=== PATIENT | female | born 1990 | race Caucasian/White ===

== ENCOUNTER 2018-06-20 04:17 | Emergency (ER) | payer OTHER ==
[~2018-06-20] VITALS: Ht 160 cm; Wt 98.0 kg
[~2018-06-20 04:17] MED LIST: ALBUTEROL0.09 MG/A1 INH; BACTRIM DS 8001 TAB PO; CHERATUSSIN AC118 M1 PO; CLEOCIN HCL300 MG PO; DILAUDID2 MG PO; ENDOCET 325 MG-1 TA1 PO; GOOD SENSE IBU200 MG PO; IPRAT-ALBUT 0.5-3 ML NEB; MEDROL4 M2 PO; MOTRIN800 MG PO; NORFLEX100 MG PO; PEPCID40 MG PO; PERIDEX 480 ML480 ML PO; PREDNISONE10 MG PO; PROAIR HFA0.09 MG/Ac; TYLENOL #31 TAB PO; VICODIN5-300 PO; VISTARIL50 MG PO; VOLTAREN75 MG PO; ZOFRAN ODT4 M1 SL
--- NOTE | 2018-06-20 05:46 | ED NECK/BACK PAIN COMPLAINT ---
History of Present Illness General Chief Complaint: General Adult Stated Complaint: "THYROID NODULE PAINFUL AND CAUSING SOB" Source: patient, old records Exam Limitations: no limitations Vital Signs & Intake/Output Vital Signs & Intake/Output Vital Signs Date Time Temp Pulse Resp B/P B/P Pulse O2 O2 Flow FiO2 Mean Ox Delivery Rate 06/20 1038 97.9 75 20 122/71 96 Room Air 06/20 0835 98.3 81 20 124/78 98 Room Air 06/20 0620 97.7 73 18 115/60 98 Room Air 06/20 0429 98 Room Air 06/20 0428 99.0 99 16 131/81 98 Room Air Room Air Allergies Coded Allergies: MDX - Dextromethorphan (Dextromethorphan) (Severe, HIVES FROM NYQUIL 05/07/15) MDX - Doxylamine (Doxylamine) (Severe, HIVES FROM NYQUIL 05/07/15) MDX - Ciprofloxacin (CIPROFLOXACIN) (Intermediate, RASH, MOOD SWINGS 05/07/15) MDX - Diphenhydramine (From BENADRYL) (HIVES 05/07/15) Uncoded Allergies: Zipari ZESTY SAUCE (HIVES 11/07/14) Reconcile Medications Albuterol Sulfate (Albuterol Sulfate Hfa) 90 MCG HFA.AER.AD 2 PUFF INH Q4-6 PRN PRN SHORTNESS OF BREATH (Reported) 90 MCG PER PUFF Codeine Phosphate/Guaifenesi (Cheratussin AC Syrup) 10 MG-100 MG/5 ML LIQUID 10 ML PO Q6H PRN COUGH Diclofenac Sodium (Voltaren) 75 MG ECT 1 TAB PO BID PRN BACK PAIN Ipratropium/Albuterol Sulfate (Iprat-Albut 0.5-3(2.5) MG/3 Ml) 0.5 MG-3 MG (2.5 MG BASE)/3 ML AMPUL.NEB 3 ML NEB Q4-6H PRN COUGH/SOB Methylprednisolone. (Medrol) 4 MG TAB.DS.PK 1 DP PO AD BRONCHITIS 6 on day 1 then reduce by one tablet daily until gone Ondansetron (Zofran Odt) 4 MG TAB.RAPDIS 1 TAB SL TID PRN NAUSEA Orphenadrine Citrate (Norflex) [address] 1 TAB PO BID PRN BACK SPASMS Triage Note: 27YO FEMALE TO TRIAGE W/CO "THYROID NODULE IS GETTING BIGGER AND MORE PAINFUL" ALSO STATES DIFFICULTY SWALLOWING AND BREATHING" STATES SHE IS SCHEDULED FOR SURG ON 07/12 Triage Nurses Notes Reviewed? yes : No Patient currently breastfeeds: No HPI: Patient presents for evaluation of a worsening right-sided thyroid nodule. Patient states she is seeing an fitness consultant for this but they "do nothing". Patient states that she has had episodes similar to this in the past but it is more intense than usual currently. Patient is experiencing fullness and a choking feeling in the neck along with pain to the right side of the face and down the right side of the neck into the chest. Again she has had similar episodes in the past but typically so intense. Patient states they will resolve spontaneously after about 3-4 days (the current episode has been present for about 3 days). She tried ibuprofen without much improvement. She has seen a surgeon who will be removing the thyroid nodule over the next few weeks. (Kathy NUNEZ,Kranthi Brandt) Past History Travel History Traveled to [place] past 21 day No Medical History Any Pertinent Medical History? see below for history Neurological: NONE EENT: NONE Cardiovascular: NONE Respiratory: ASTHMA1 Gastrointestinal: NONE Hepatic: NONE Renal: UTI'S1 KIDNEY INFECTIONS Musculoskeletal: chronic back pain Psychiatric: NONE Endocrine: THYROID NODULE Surgical History Surgical History: ORAL SURGERY Psychosocial History What is your primary language Bulgarian Tobacco Use: Current Daily Use Daily Tobacco Use Amount/Type: => 5 Cigarettes daily Family History Hx Contributory? No (Kathy NUNEZ,Kranthi Brandt) Review of Systems Review of Systems Constitutional: Reports: no symptoms. Eyes: Reports: no symptoms. Ears, Nose, Throat, Mouth: Reports: see HPI. Respiratory: Reports: no symptoms. Cardiovascular: Reports: no symptoms. Gastrointestinal/Abdominal: Reports: no symptoms. Musculoskeletal: Reports: no symptoms. Skin: Reports: no symptoms. Neurological/Psychological: Reports: no symptoms. All Other Systems: Reviewed and Negative (Kathy NUNEZ,Kranthi Brandt) Physical Exam Physical Exam Neck: SEE BELOW Comments: Gen.: Well-nourished, well-developed, no acute respiratory distress. Head: Normocephalic, atraumatic. Eyes: Normal inspection bilaterally Ears: Normal inspection bilaterally Nose: Normal inspection Throat/mouth : Moist mucosa Neck: Supple, full range of motion, palpable right thyroid nodule, no stridor Heart: Regular rate and rhythm Lungs: Quiet respirations with good bilateral air entry Back: Normal range of motion Extremities: Normal range of motion grossly, no cyanosis clubbing or edema of the upper extremities Neurologic: Cranial nerves grossly intact, speech is clear Skin: warm and dry Psychiatric: Calm, cooperative, no apparent delusions or hallucinations Core Measures CVA/TIA Diagnosis: No (Kathy NUNEZ,Kranthi Brandt) Progress Differential Diagnosis: THYROID NODULE, MUSCULOSKELETAL PAIN, AIRWAY IMPINGEMENT Plan of Care: Orders Procedure Date/time Status Saline Lock 06/20 817 Active CBC WITHOUT DIFFERENTIAL 06/20 817 Complete BASIC METABOLIC PANEL 06/20 817 Complete URINE 06/20 519 Complete Laboratory Tests 06/20/18 0900: Anion Gap 12, Estimated GFR > 60, BUN/Creatinine Ratio 6.7 L, Glucose 89, Calcium 9.6, CBC w Diff NO MAN DIFF REQ, RBC 5.18, MCV 83.1, MCH 27.3, MCHC 32.9 L, RDW 15.9 H, MPV 8.6, Gran % 60.2, Lymphocytes % 31.4, Monocytes % 6.8, Eosinophils % 1.2, Basophils % 0.4, Absolute Granulocytes 3.9, Absolute Lymphocytes 2.0, Absolute Monocytes 0.4, Absolute Eosinophils 0.1, Absolute Basophils 0 06/20/18526: Urine Test NEGATIVE Diagnostic Imaging: Discussed w/RAD: Radiology Read. Radiology Impression: PATIENT: JIL MORIN PRESENT AGE: 27 PATIENT ACCOUNT NO: [id number] : 90 LOCATION: [facility] ORDERING PHYSICIAN: Kranthi Chavez MD SERVICE DATE: 06/20/18 EXAM TYPE: RAD - XRY-SOFT TISSUE NECK EXAMINATION: XR SOFT TISSUE NECK CLINICAL INDICATION: Sensation of fullness of throat. COMPARISON: Chest radiograph from December 10, 2013. TECHNIQUE: 2 views of the soft tissue neck were obtained. FINDINGS: There is mild displacement of the trachea to the left at the level of the thoracic inlet. There is only minimal luminal narrowing at this location. There is no prevertebral soft tissue swelling. The cervical vertebra are in normal alignment. IMPRESSION: Mild leftward displacement to the trachea at the level of the thoracic inlet. No radiopaque foreign bodies. No prevertebral soft tissue swelling. DICTATED BY: Jakob Emanuel MD DATE/TIME DICTATED:06/20/18558 NEON GLASS BENDER:JESÚS DATE/TIME TRANSCRIBED:06/20/18558 CONFIDENTIAL, DO NOT COPY WITHOUT APPROPRIATE AUTHORIZATION. <Electronically signed in Other Vendor System> SIGNED BY: Jakob Emanuel MD 06/20/18 0604 Comments: 06/20/2018 7:15:31 AM patient signed out to Dr. Bro at shift change management. (Kathy NUNEZ,Kranthi Brandt) Radiology Impression: IMPRESSION: Enlarged right lobe of thyroid secondary to a solitary complex cyst in the right lobe of the thyroid, similar to prior, with an irregular margin and lobulation. No discrete microcalcifications or abnormal color Doppler flow are seen on this side. Symptomatic relief and sampling could be obtained with a fine-needle aspiration biopsy as appropriate. The patient indicated that they are scheduled for a lobectomy. Normal isthmus and left lobe of thyroid., IMPRESSION: Large complex cyst right thyroid lobe with moderate mass effect on on right thyroid lobe and shift of trachea to the left without compromising the airway. Borderline lymph node right posterior neck. Most of the anterior neck lymph nodes are normal. Rest of the CT neck appears unremarkable. Recommend ultrasound-guided complete aspiration and biopsy of right thyroid complex cyst. DICTATED BY: Nydia NUNEZ,Noah DATE/TIME DICTATED:06/20/181103 NEON GLASS BENDER:JESÚS DATE/TIME TRANSCRIBED:06/20/181103 Comments: 0819 given the patient's x-ray finding and complaint of neck swelling for the thyroid nodule we will get a CT scan for evaluation of the airway. The pain is radiating up into the jaw and neck on the right side where the patient has a nodule. At this time protecting the airway, speaking comfortably. Not stridorous. In no distress. [address] scan and ultrasound report both show a complex cyst on the right thyroid shifting the trachea but not causing airway compromise. The patient remains without stridor and speaking in long complete sentences without discomfort. Her main complaint is continued discomfort in the neck and she has a lobectomy already scheduled next month. But given the CT scan report of the radiologist I discussed the possibility of aspiration to relieve the patient's current discomfort so she could get symptomatic relief while waiting for the lobectomy. The patient states that "nobody is going near my neck with a needle" and she will contact her doctors in [place] for her continued care. Since the patient has no airway compromise or impending airway compromise and this is a chronic condition, we will let her follow through with this plan. I have given the patient option to have faster relief but she is refusing it at this time. She understands that she needs to get in touch with her surgeon tomorrow and they can get the report from our radiology. (Ny Bro MD) Departure Departure Condition: Stable Clinical Impression Primary Impression: Thyroid nodule Referrals: Jorge Donaldson MD (PCP/Family) Departure Forms: Customer Survey General Discharge Information (Kranthi Chavez MD) Departure Time of Disposition: 1135 Disposition: HOME OR SELF CARE Additional Instructions: Your continued discomfort can be helped by drainage of cyst in your neck. If you change your mind please contact your primary doctor to arrange for the procedure. Return immediately if has any trouble breathing or swallowing. Unfortunately the discomfort will not get better until the cyst is either removed or drained. (Ny Bro MD) At this time protecting the airway, speaking comfortably. Not stridorous. In no distress. [address] scan and ultrasound report both show a complex cyst on the right thyroid shifting the trachea but not causing airway compromise. The patient remains without stridor and speaking in long complete sentences without discomfort. Her main complaint is continued discomfort in the neck and she has a lobectomy already scheduled next month. But given the CT scan report of the radiologist I discussed the possibility of aspiration to relieve the patient's current discomfort so she could get symptomatic relief while waiting for the lobectomy. The patient states that "nobody is going near my neck with a needle" and she will contact her doctors in [place] for her continued care. Since the patient has no airway compromise or impending airway compromise and this is a chronic condition, we will let her follow through with this plan. I have given the patient option to have faster relief but she is refusing it at this time. She understands that she needs to get in touch with her surgeon tomorrow and they can get the report from our radiology. (Ny Bro MD) Departure Departure Condition: Stable Clinical Impression Primary Impression: Thyroid nodule Referrals: Jorge Donaldson MD (PCP/Family) Departure Forms: Customer Survey General Discharge Information (Kranthi Chavez MD) Departure Time of Disposition: 1135 Disposition: HOME OR SELF CARE Additional Instructions: Your continued discomfort can be helped by drainage of cyst in your neck. If you change your mind please contact your primary doctor to arrange for the procedure. Return immediately if has any trouble breathing or swallowing. Unfortunately the discomfort will not get better until the cyst is either removed or drained. (Dieudonne NUNEZ,[facility])
--- NOTE | 2018-06-20 06:04 | RADIOLOGY REPORT ---
EXAMINATION: XR SOFT TISSUE NECK CLINICAL INDICATION: Sensation of fullness of throat. COMPARISON: Chest radiograph from December 10, 2013. TECHNIQUE: 2 views of the soft tissue neck were obtained. FINDINGS: There is mild displacement of the trachea to the left at the level of the thoracic inlet. There is only minimal luminal narrowing at this location. There is no prevertebral soft tissue swelling. The cervical vertebra are in normal alignment. IMPRESSION: Mild leftward displacement to the trachea at the level of the thoracic inlet. No radiopaque foreign bodies. No prevertebral soft tissue swelling.
[2018-06-20 09:14] LABS: ABSOLUTE BASOPHIL COUNT 0 /CUMM (0.0-0.2); ABSOLUTE EOSINOPHIL COUNT 0.1 /CUMM (0.0-0.7); ABSOLUTE GRANULOCYTE CT 3.9 /CUMM (1.4-6.5); ABSOLUTE MONOCYTE COUNT 0.4 /CUMM (0.10-0.60); BASOPHIL % 0.4 % (0.0-2.0); EOSINOPHIL % 1.2 % (0-5); GRANULOCYTE % 60.2 % (42.2-75.2); MEAN CORPUSCULAR HGB 27.3 PG (27.0-31.0); MEAN CORPUSCULAR HGB CONC 32.9 G/DL (33.0-37.0); MEAN CORPUSCULAR VOLUME 83.1 FL (81.0-99.0); MEAN PLATELET VOLUME 8.6 FL (7.4-10.4); PLATELET COUNT 256 /CUMM (130-400); RBC DISTRIBUTION WIDTH 15.9 % (11.5-14.5); RED BLOOD CELL CT 5.18 /CUMM (4.20-5.40); WHITE BLOOD CELL COUNT 6.5 /CUMM (4.8-10.8)
--- NOTE | 2018-06-20 10:11 | ULTRASOUND REPORT ---
EXAMINATION: US THYROID CLINICAL INFORMATION: Neck swelling, thyroid mass COMPARISON: Neck ultrasound 02/05/2018. Soft tissue neck radiographs 06/20/2018. TECHNIQUE: Linear transducer de león-scale and color Doppler examination with attention to the region of the thyroid. FINDINGS: SIZE: Measurements of the thyroid lobes and nodules are given in sagittal, anteroposterior and transverse dimensions respectively. Right Thyroid Lobe: 5 x 3 x 3.1 cm, volume 24 mL (prior 6.1 x 2.9 x 3.2 cm, 30 mL). Left Thyroid Lobe: 4.5 x 1.1 x 1.5 cm, volume 4 mL (prior 4.7 x 1.3 x 1.3 cm, 4 mL). Isthmus: 0.4 cm in maximum AP dimension (prior 0.4 cm). PARENCHYMA: The gland echotexture is normal. Thyroid vascularity is normal. RIGHT THYROID LOBE: A single finding is identified: Location: Mid thyroid Size: 4.4 x 2.5 x 3.0 cm (prior 3.6 x 3.1 x 3.0 cm). Nodule characteristics: Complex thick-walled cyst with slightly irregular, lobulated margins. There is low level debris within the lobulated cyst. No discrete microcalcifications are seen on this exam. No abnormal color Doppler flow. ISTHMUS: No nodules. LEFT THYROID LOBE: No nodules. NODES: A normal appearing 0.5 cm lymph node is seen in the left neck.. IMPRESSION: Enlarged right lobe of thyroid secondary to a solitary complex cyst in the right lobe of the thyroid, similar to prior, with an irregular margin and lobulation. No discrete microcalcifications or abnormal color Doppler flow are seen on this side. Symptomatic relief and sampling could be obtained with a fine-needle aspiration biopsy as appropriate. The patient indicated that they are scheduled for a lobectomy. Normal isthmus and left lobe of thyroid.
[2018-06-20 10:38] VITALS: BP 122/71
--- NOTE | 2018-06-20 11:20 | CT SCAN REPORT ---
EXAMINATION: CT NECK WITH CONTRAST CLINICAL INFORMATION: Neck pain. Left thyroid nodule. Pain and swelling. COMPARISON: Soft tissue neck 06/20/2018 and ultrasound soft tissue neck 06/20/2018. TECHNIQUE: 2.5 minutes and axial and reformatted 3 mm thin sagittal and coronal images of neck were obtained following IV 95 mL Optiray 320. DLP 431. FINDINGS: There is no intracranial abnormality in the limited images obtained. There is normal symmetry of optic globe and optic nodes in the orbits. The paranasal sinuses are well-aerated except for mild mucoperiosteal thickening left posterior ethmoid sinus. Bilateral mastoid cells are well-aerated. Bilateral parotid and submandibular glands are symmetrical without any focal lesion or enlargement. Visualized tonsils and the adenoids are unremarkable. The airways widely patent. There is a large hypodense lesion right thyroid lobe measuring 3.8 x 2.9 x 4.0 cm with majority thin imperceptible enhancing wall. It has some enhancing septations within likely complex cyst. It produces slight mass effect on the right thyroid lobe and shift of trachea to the left. The left thyroid lobe appears unremarkable. There is a 1.3x 0.8 cm wide largest lymph node right posterior neck, axial image 40, series 2. Otherwise most of the lymph nodes seen throughout the anterior neck are within normal limits. The carotid artery and the jugular venous sheath appear normal caliber and patency. The prevertebral and paravertebral soft tissues are preserved. There is a right apical lung atelectasis or scarring. IMPRESSION: Large complex cyst right thyroid lobe with moderate mass effect on on right thyroid lobe and shift of trachea to the left without compromising the airway. Borderline lymph node right posterior neck. Most of the anterior neck lymph nodes are normal. Rest of the CT neck appears unremarkable. Recommend ultrasound-guided complete aspiration and biopsy of right thyroid complex cyst.
== END 2018-06-20 11:49 ==
LOC: ERH 04:17
PROVIDERS: Emergency Medicine
DX: E04.1 Nontoxic single thyroid nodule (principal)
CPT/HCPCS: 70360; 81025; A9579